=== PATIENT | female | born 1960 | race Caucasian/White ===

== ENCOUNTER 2017-04-19 11:19 | Emergency (ER) | payer SELFPAY ==
--- NOTE | 2017-04-19 11:25 | PDOC ---
History of Present Illness - General Stated Complaint: INJURY R FOOT AND ANKLE Time Seen by Provider: 04/19/17 11:23 History Source: Patient (Patient complains of pain inthe right ankle and foot after fall on ice aprox one month ago) Past History - Travel Traveled outside of the country in the last 30 days: No Close contact w/someone who was outside of country & ill: No - Past Medical History Allergies/Adverse Reactions: Allergies Allergy/AdvReac Type Severity Reaction Status Date / Time No Known Allergies Allergy Verified 04/19/17 11:34 Home Medications: Ambulatory Orders Aspirin Coated [Ecotrin -] 0.5 tab PO DAILY 04/19/17 - Suicide/Smoking/Psychosocial Hx Smoking Status: No Smoking History: Never smoked Number of Cigarettes Smoked Daily: 0 Review of Systems - Review of Systems Able to Perform ROS?: Yes Is the patient limited [place] proficient: Yes Constitutional: No: Symptoms Reported, See HPI, Chills, Diaphoresis, Fever, Loss of Appetite, Malaise, Night Sweats, Weakness, Weight Stable, Unintentional Wgt. Loss, Unexplained wgt Loss, Other HEENTM: No: Symptoms Reported, See HPI, Eye Pain, Blurred Vision, Tearing, Recent change in vision, Double Vision, Cataracts, Ear Pain, Ocular Prothesis, Ear Discharge, Nose Pain, Nose Congestion, Tinnitus, Nose Bleeding, Hearing Loss , Throat Pain, Throat Swelling, Mouth Pain, Dental Problems, Difficulty Swallowing, Mouth Swelling, Other Musculoskeletal: Yes: See HPI All Other Systems: Reviewed and Negative *Physical Exam - Physical Exam General Appearance: Yes: Nourished, Appropriately Dressed, Other (overweight) HEENT: positive: ANTONELLA Neck: positive: Supple Rectal Exam: negative: heme negative stool, normal exam, NL Prostate, normal rectal tone, deferred, melena, decreased tone, heme positive stool, hemorrhoids , other Musculoskeletal: positive: Decreased Range of Motion (due to pain in the right ankle) Extremity: positive: Normal Capillary Refill, Pedal Edema Integumentary: positive: Normal Color Neurologic: positive: Fully Oriented, Alert, Normal Mood/Affect Medical Decision Making - Medical Decision Making In my opinion X ray showed a minimally displaced trimaleolar fracture, Velcro splint applied, patient arrived with own crutches. Advised to follow up with [employer] orthopedic MD, to apply to medical insurance as suggested by the registrar Leg elevattion 04/20/17 22:37 *DC/Admit/Observation/Transfer Diagnosis at time of Disposition: Ankle fracture, bimalleolar, closed Qualifiers: Encounter type: initial encounter Laterality: right Qualified Code(s): S82.841A - Displaced bimalleolar fracture of right lower leg, initial encounter for closed fracture - Discharge Dispostion Disposition: HOME Condition at time of disposition: Stable Admit: No - Referrals Referrals: Mumtaz Coles MD [Staff Physician] - - Patient Instructions Printed Discharge Instructions: DI for Ankle Fracture Additional Instructions: Elevation, follow up with ortho MD, Take the CD with your X ray images - Post Discharge Activity
[2017-04-19 11:44] VITALS: BP 140/82; PULSE 109; TEMP 98.8; BMI 34.0
== END 2017-04-19 13:00 | disposition home or self-care (01) ==
LOC: FER 11:19
PROC: 2W3QX1Z Immobilization of Right Lower Leg using Splint (ICD-10-PCS; principal; 2017-04-19)
DX: S82.841A Displaced bimalleolar fracture of right lower leg, initial encounter for closed fracture (principal); W00.0XXA Fall on same level due to ice and snow, initial encounter; Y93.89 Activity, other specified; Y92.9 Unspecified place or not applicable
CPT/HCPCS: 73610-TC-RT; 73630-TC-RT; 99282-25

== ENCOUNTER 2023-08-24 17:29 | Emergency (ER) | payer SELFPAY ==
[2023-08-24 17:37] VITALS: BP 143/80; PULSE 113; RESP 18; TEMP 99.4; BMI 30.9
== END 2023-08-24 19:44 | disposition home or self-care (01) ==
LOC: FER 17:29
PROC: 2W3SX1Z Immobilization of Right Foot using Splint (ICD-10-PCS; principal; 2023-08-24)
DX: S82.891A Other fracture of right lower leg, initial encounter for closed fracture (principal); X50.1XXA Overexertion from prolonged static or awkward postures, initial encounter; Y93.01 Activity, walking, marching and hiking
CPT/HCPCS: 73610-TC-LT-FY; 73630-TC-LT; 99283-25